=== PATIENT | male | born 1955 | race African-American/Black ===

== ENCOUNTER 2018-10-24 21:11 | Inpatient (IN) | payer OTHER ==
[~2018-10-24] VITALS: Ht 188 cm; Wt 80.0 kg
[2018-10-24 21:15] VITALS: Ht 188 cm; Wt 80.0 kg
[2018-10-24 22:11] LABS: BASOPHIL % 0.5 % (0-2); PLATELET COUNT 290 x10^3mcL (130-400); RED CELL DISTRIBUTION WIDTH 13.1 % (11.5-14.5)
[2018-10-24 22:24] LABS: CALCIUM 8.6 mg/dL (8.5-10.1); CARBON DIOXIDE 21.1 mmol/L (21-32); CHLORIDE SERUM 105 mmol/L (98-107); CREATININE SERUM 1.1 mg/dL (0.7-1.3); GFR1 > 60 mL/min; GLUCOSE SERUM 244 mg/dL (74-106); POTASSIUM SERUM 3.6 mmol/L (3.5-5.1); SODIUM SERUM 142 mmol/L (136-145)
[2018-10-24 22:29] LABS: ALBUMIN 3.8 g/dL (3.4-5.0); ALKALINE PHOSPHATASE 76 U/L (46-116); ALT/SGPT 27 U/L (16-63); AST/SGOT 15 U/L (15-37); BILIRUBIN TOTAL 0.29 mg/dL (0.20-1.00); TOTAL PROTEIN, SERUM 6.8 g/dL (6.4-8.2)
[2018-10-25] VITALS (7 sets, daily range): BP systolic 122–145; BP diastolic 70–80
[2018-10-25 05:37] LABS: MAGNESIUM 1.9 mg/dL (1.8-2.4)
[2018-10-25 05:48] LABS: CHOLESTEROL/HDL RATIO 2.2
[2018-10-25 07:21] LABS: CALCIUM 8.6 mg/dL (8.5-10.1); CARBON DIOXIDE 26.8 mmol/L (21-32); CHLORIDE SERUM 104 mmol/L (98-107); CREATININE SERUM 0.9 mg/dL (0.7-1.3); GFR1 > 60 mL/min; GLUCOSE SERUM 243 mg/dL (74-106); POTASSIUM SERUM 4.1 mmol/L (3.5-5.1); SODIUM SERUM 140 mmol/L (136-145)
[2018-10-25 15:26] LABS: microscopic required? NO
[2018-10-25 15:29] LABS: urine erythrocyte NEGATIVE (NEGATIVE)
[2018-10-25 18:04] LABS: AMPHETAMINE QUAL UR NONE DETECTED (See below)
[2018-10-26 05:27] VITALS: BP 147/83
[2018-10-26 09:18] VITALS: BP 130/76
[2018-10-26 13:15] VITALS: BP 140/75
[2018-10-26 21:46] VITALS: BP 134/71
[2018-10-27 05:20] VITALS: BP 133/76
[2018-10-27 10:40] VITALS: BP 126/72
[2018-10-27 11:18] VITALS: BP 126/72
== END 2018-10-27 13:00 | disposition home or self-care (01) | DRG 311 ==
LOC: ED 21:11 → DU 23:09
PROVIDERS: Emergency Medicine; ADMIT Internal Medicine
PROC: 0DB68ZX Excision of Stomach, Via Natural or Artificial Opening Endoscopic, Diagnostic (ICD-10-PCS; principal; 2018-10-26)
PROC: 0DBG8ZZ Excision of Left Large Intestine, Via Natural or Artificial Opening Endoscopic (ICD-10-PCS; 2018-10-26)
DX: I24.9 Acute ischemic heart disease, unspecified (principal); E11.9 Type 2 diabetes mellitus without complications; F17.210 Nicotine dependence, cigarettes, uncomplicated; I25.10 Atherosclerotic heart disease of native coronary artery without angina pectoris; I10 Essential (primary) hypertension; E78.5 Hyperlipidemia, unspecified; R09.1 Pleurisy; I45.10 Unspecified right bundle-branch block; K59.00 Constipation, unspecified; K64.8 Other hemorrhoids; R10.9 Unspecified abdominal pain
CPT/HCPCS: 43235; 45378; 82962; J1200; J1610; J2250; J2310; J2765; J3010; J3490; Q0092